=== PATIENT | female | born 1955 | race Caucasian/White ===

== ENCOUNTER 2020-12-29 14:53 | Emergency (ER) | payer MEDICARE ==
[~2020-12-29 14:53] MED LIST: ACTOS45 MG PO; ANORO ELLIPTA1 EACH INH; BACTRIM DS TAB1 EACH PO; BENZONATATE100 MG PO; BROVANA15 MCG/2 M NEB; CELEBREX 200MG200 MG PO; COREG 3.125M3.125 MG PO; COZAAR100 MG PO; DALIRESP500 MCG PO; EFFEXOR XR 3737.5 MG PO; FERROUS SULFAT325 M2 PO; GABAPENTIN300 MG PO; HYDROXYZINE HCL50 MG PO; KEFLEX CAP 500500 MG PO; LAMICTAL100 MG PO; LEVAQUIN500 MG PO; LEVOFLOXACIN500 MG PO; MEDROL4 MG PO; METRONIDAZOLE250 MG PO; MIRALAX17 GM PO; NORCO 5-325 TA1 EACH PO; NORVASC10 MG PO; PRAVACHOL40 MG PO; PREDNISONE20 MG PO; PROTONIX40 MG PO; PYRIDIUM100 MG PO; REQUIP3 MG PO; SINGULAIR10 MG PO; SUBOXONE 8 MG-1 EACH SL; ULTRAM50 MG PO; VALIUM 5 MG TAB5 MG PO; VENTOLIN HFA 66.7 GM INH; VIBRAMYCIN100 MG PO; VRAYLAR PO; ZITHROMAX250 MG PO; ZOFRAN4 MG PO
[2020-12-29 21:48] LABS: HEMOGLOBIN 11.2 gm/dl (12.3-15.3); RED BLOOD COUNT 4.48 M/UL (4.00-5.10); WHITE BLOOD COUNT 8.7 K/UL (4.5-11.0)
[2020-12-29 22:19] LABS: BUN/CREATININE RATIO 30 (0-10)
== END 2020-12-30 01:14 | disposition home or self-care (01) ==
LOC: ER1 14:53
PROVIDERS: Emergency Medicine
DX: R07.9 Chest pain, unspecified (principal); F17.210 Nicotine dependence, cigarettes, uncomplicated; Z88.5 Allergy status to narcotic agent; Z88.8 Allergy status to other drugs, medicaments and biological substances; Z53.20 Procedure and treatment not carried out because of patient's decision for unspecified reasons
CPT/HCPCS: 71046; 80053; 82550; 82553; 84484; 85025; 93005; 99285

== ENCOUNTER 2021-01-08 09:28 | Inpatient (IN) | payer MEDICARE ==
[~2021-01-08] VITALS: Ht 170.2 cm; Wt 54.4 kg
[2021-01-08 11:16] LABS: HEMOGLOBIN 10.1 gm/dl (12.3-15.3); RED BLOOD COUNT 4.11 M/UL (4.00-5.10)
[2021-01-08 11:46] LABS: BUN/CREATININE RATIO 45 (0-10)
[2021-01-08] MEDS ORDERED: ANORO ELLIPTA1 EACH INH (16:13)
[2021-01-08] MEDS ORDERED: ALBUTEROL2.5 MG/3 M INH (16:16)
[2021-01-08] MEDS ORDERED: BYSTOLIC10 MG PO (16:17)
[2021-01-08] MEDS ORDERED: DALIRESP250 MCG PO (16:18)
[2021-01-08] MEDS ORDERED: IBU800 MG PO (16:19)
[2021-01-08] MEDS ORDERED: CONSTULOSE10 GM/15 M PO (16:20)
[2021-01-08] MEDS ORDERED: SINGULAIR10 MG PO (16:22)
[2021-01-08] MEDS ORDERED: TRELEGY ELLIPT1 EACH INH (16:26)
[2021-01-09 04:21] LABS: HEMOGLOBIN 10.2 gm/dl (12.3-15.3); RED BLOOD COUNT 4.09 M/UL (4.00-5.10)
[2021-01-09 04:49] LABS: BUN/CREATININE RATIO 37 (0-10)
[2021-01-10 08:35] LABS: HEMOGLOBIN 10.1 gm/dl (12.3-15.3); RED BLOOD COUNT 4.13 M/UL (4.00-5.10); WHITE BLOOD COUNT 8.6 K/UL (4.5-11.0)
[2021-01-10 09:02] LABS: BUN/CREATININE RATIO 33 (0-10)
--- NOTE | 2021-01-10 17:41 | NUR ---
1735: PATIENT HAS BEEN IN CONSTANT MOTION MOST OF THE DAY AND HAS REQUIRED ATIVAN IV ON TWO OCCASSIONS. PATIENT HAS REQUIRED 1:1 SUPERVISION THIS SHIFT TO PREVENT PERSONAL INJURY. RN SPOKE WITH PATIENTS NEIGHBOR THAT CALLED TO REQUEST THAT THE PATIENT BE MADE AWARE THAT SHE HAS HER HOUSE MURRELL AND HER CAT UNTIL SHE IS DISCHARGED HOME. NEIGHBORS NAME IS PHOEBE HUBER [phone]. RN PLACED A NSG COMMUNICATION FOR STAFF AWARENESS. RN ALSO SPOKE WITH PATIENTS DAUGHTER MINI COTO WHO REQUESTED TO SPEAK WITH CASE MG REGARDING PLACEMENT FOR HER MOTHER AT DISCHARGE. [phone].
[2021-01-11 09:26] LABS: HEMOGLOBIN 10.5 gm/dl (12.3-15.3); RED BLOOD COUNT 4.27 M/UL (4.00-5.10); WHITE BLOOD COUNT 7.8 K/UL (4.5-11.0)
[2021-01-11 09:46] LABS: BUN/CREATININE RATIO 29 (0-10)
[2021-01-13 02:48] LABS: HEMOGLOBIN 11.4 gm/dl (12.3-15.3); RED BLOOD COUNT 4.64 M/UL (4.00-5.10); WHITE BLOOD COUNT 8.5 K/UL (4.5-11.0)
[2021-01-13 03:15] LABS: BUN/CREATININE RATIO 29 (0-10)
--- NOTE | 2021-01-13 11:35 | NUR ---
PATIENT STRAIGHT CATHED PER MD ORDER. 200 ML CLEAR, YELLOW URINE RETURNED TO COLLECTION BAG AFTER BLADDER SCANNER SHOWED 280 ML OF URINARY RETENTION. PATIENT WAS UNABLE TO VOID.
--- NOTE | 2021-01-13 17:35 | NUR ---
PATIENT WITH NO URINE OUTPUT SINCE STRAIGHT CATH THIS AM. NEW ORDER NOTED TO INSERT F/C.
[2021-01-14 08:13] LABS: HEMOGLOBIN 10.8 gm/dl (12.3-15.3); RED BLOOD COUNT 4.38 M/UL (4.00-5.10); WHITE BLOOD COUNT 7.9 K/UL (4.5-11.0)
[2021-01-14 08:21] LABS: BUN/CREATININE RATIO 26 (0-10)
[2021-01-15 06:15] LABS: HEMOGLOBIN 10.4 gm/dl (12.3-15.3); RED BLOOD COUNT 4.3 M/UL (4.00-5.10); WHITE BLOOD COUNT 7.8 K/UL (4.5-11.0)
[2021-01-15 06:56] LABS: BUN/CREATININE RATIO 26 (0-10)
[2021-01-16 06:25] LABS: HEMOGLOBIN 10.6 gm/dl (12.3-15.3); RED BLOOD COUNT 4.33 M/UL (4.00-5.10); WHITE BLOOD COUNT 9.5 K/UL (4.5-11.0)
[2021-01-16 06:46] LABS: BUN/CREATININE RATIO 22 (0-10)
[2021-01-17 08:15] LABS: HEMOGLOBIN 11.8 gm/dl (12.3-15.3); RED BLOOD COUNT 4.76 M/UL (4.00-5.10); WHITE BLOOD COUNT 9.3 K/UL (4.5-11.0)
[2021-01-17 08:46] LABS: BUN/CREATININE RATIO 21 (0-10)
--- NOTE | 2021-01-17 19:25 | NUR ---
INFORMED DR. ENGEL THAT PT PULLED IV OUT THIS MORNING. MD AWARE AND STATED THAT ALL OF HER MEDICATIONS WILL BE CHANGED TO PO AND IM. NO FURTHER IV IS NEEDED.
[2021-01-18 07:51] LABS: HEMOGLOBIN 10.8 gm/dl (12.3-15.3); RED BLOOD COUNT 4.53 M/UL (4.00-5.10); WHITE BLOOD COUNT 9.8 K/UL (4.5-11.0)
[2021-01-19 08:11] LABS: HEMOGLOBIN 11.8 gm/dl (12.3-15.3); RED BLOOD COUNT 4.94 M/UL (4.00-5.10); WHITE BLOOD COUNT 8.7 K/UL (4.5-11.0)
[2021-01-19 08:32] LABS: BUN/CREATININE RATIO 23 (0-10)
[2021-01-20 06:34] LABS: HEMOGLOBIN 12.7 gm/dl (12.3-15.3); RED BLOOD COUNT 5.11 M/UL (4.00-5.10); WHITE BLOOD COUNT 10.4 K/UL (4.5-11.0)
[2021-01-21 08:37] LABS: HEMOGLOBIN 12.1 gm/dl (12.3-15.3); RED BLOOD COUNT 4.93 M/UL (4.00-5.10); WHITE BLOOD COUNT 9.1 K/UL (4.5-11.0)
[2021-01-22 09:37] LABS: HEMOGLOBIN 11.8 gm/dl (12.3-15.3); RED BLOOD COUNT 4.84 M/UL (4.00-5.10)
[2021-01-22 09:38] LABS: WHITE BLOOD COUNT 11.7 K/UL (4.5-11.0)
[2021-01-23 08:08] LABS: HEMOGLOBIN 11.3 gm/dl (12.3-15.3); RED BLOOD COUNT 4.51 M/UL (4.00-5.10)
[2021-01-23 08:15] LABS: WHITE BLOOD COUNT 8.3 K/UL (4.5-11.0)
[2021-01-24 06:42] LABS: BUN/CREATININE RATIO 49 (0-10)
[2021-01-26 07:52] LABS: HEMOGLOBIN 11.3 gm/dl (12.3-15.3); RED BLOOD COUNT 4.76 M/UL (4.00-5.10); WHITE BLOOD COUNT 8.1 K/UL (4.5-11.0)
[2021-01-26 08:13] LABS: BUN/CREATININE RATIO 33 (0-10)
--- NOTE | 2021-01-26 11:47 | NUR ---
01/26/21 1040 WILD CANNOT KEEP IN ROOM REFUSES TO WEAR NON SKID SOCKS, HOUSE NOTIFIED OF NEED FOR SITTER. MARLYN HERE TO SIT WITH HER
--- NOTE | 2021-01-26 11:48 | NUR ---
01/26/21 1145 CONTINUES TO BE WILD STRIKING AT STAFF ATIVAN 2MG IVP GIVEN, NURSE REMAINS AT BEDSIDE. FILM VAULT SUPERVISOR NOTIFIED OF NEED FOR SITTER
--- NOTE | 2021-01-26 12:48 | NUR ---
01/26/21 1245 [facility]AN [facility] PATIENT ON PUREED DIET WITH NECTAR THICK LIQUIDS
--- NOTE | 2021-01-26 14:56 | NUR ---
01/26/21 1430 AMBULATING UNSTEADY IN ROOM AND OCCASSIONALLY GETS OUT OF ROOM, HAD BOWEL MOVEMENT IN HALLWAY. REFUSES TO WEAR SOCKS, CLOTHES AND TO STAY IN ROOM. LUÍS NURSE NUTRITION AIDE AWARE OF NEED FOR SITTER
[2021-01-29 08:10] LABS: HEMOGLOBIN 10.7 gm/dl (12.3-15.3); RED BLOOD COUNT 4.35 M/UL (4.00-5.10); WHITE BLOOD COUNT 7.2 K/UL (4.5-11.0)
[2021-01-29 10:52] LABS: BUN/CREATININE RATIO 35 (0-10)
[2021-01-29] MEDS ORDERED: GLUCOPHAGE 500500 MG PO (19:24)
[2021-01-29] MEDS ORDERED: ROPINIROLE HCL1 MG PO (19:24)
[2021-01-29] MEDS ORDERED: ACETAMINOPHEN325 MG PO (19:24)
[2021-01-29] MEDS ORDERED: QUETIAPINE FUM100 MG PO (19:24)
[2021-01-29] MEDS ORDERED: THERAGRAN M TAB1 EA PO (19:24)
[2021-01-29] MEDS ORDERED: KLONOPIN TAB 00.5 MG PO (19:24)
[2021-01-29] MEDS ORDERED: LOPRESSOR 25 MG25 MG PO (19:25)
--- NOTE | 2021-02-01 00:10 | NUR ---
PATIENT WITH RESTLESS LEG SYNDROME HISTORY. HS REQUIP GIVEN WITHOUT ALLEAVIATING SYMPTOMS, RESULTING IN PATIENT NOT BEING ABLE TO SLEEP AND ANXIOUS ABOUT THE SITUATION. SHE IS ALERT AND ORIENTED AT THIS TIME TO PERSON, PLACE AND TIME AND MOOD IS PLEASANT. ATIVAN ADMISINSTERED AND PATIENT ABLE TO REST AND SLEEP. AROUSABLE TO VERBAL STIMULI. WILL MONITOR.
[2021-02-03 18:33] LABS: BUN/CREATININE RATIO 25 (0-10)
[2021-02-04 05:51] LABS: HEMOGLOBIN 8.8 gm/dl (12.3-15.3); RED BLOOD COUNT 3.52 M/UL (4.00-5.10); WHITE BLOOD COUNT 8.3 K/UL (4.5-11.0)
[2021-02-04 06:02] LABS: BUN/CREATININE RATIO 24 (0-10)
[2021-02-05 02:56] LABS: HEMOGLOBIN 8.6 gm/dl (12.3-15.3); RED BLOOD COUNT 3.47 M/UL (4.00-5.10); WHITE BLOOD COUNT 8.8 K/UL (4.5-11.0)
[2021-02-05 03:27] LABS: BUN/CREATININE RATIO 21 (0-10)
--- NOTE | 2021-02-07 16:19 | NUR ---
REPORT CALLED TO LAMONT SHEFFIELD AT [facility].
== END 2021-02-07 17:40 | DRG 917 ==
LOC: ER1 09:28 → CDU 14:44 → M/S 14:44 → MED SURG 4 01-09 16:49 → M/S 01-11 17:48
PROVIDERS: Emergency Medicine; Family Medicine; Internal Medicine; Internal Medicine Infectious Disease; Physician Assistant; Physician Assistant Medical; ADMIT Internal Medicine
DX: T43.621A Poisoning by amphetamines, accidental (unintentional), initial encounter (principal); G92 Toxic encephalopathy; J18.9 Pneumonia, unspecified organism; N17.9 Acute kidney failure, unspecified; E87.0 Hyperosmolality and hypernatremia; J44.0 Chronic obstructive pulmonary disease with (acute) lower respiratory infection; F15.10 Other stimulant abuse, uncomplicated; E11.65 Type 2 diabetes mellitus with hyperglycemia; F19.10 Other psychoactive substance abuse, uncomplicated; I10 Essential (primary) hypertension; J44.9 Chronic obstructive pulmonary disease, unspecified; R00.0 Tachycardia, unspecified; Z85.118 Personal history of other malignant neoplasm of bronchus and lung; F19.188 Other psychoactive substance abuse with other psychoactive substance-induced disorder; G25.81 Restless legs syndrome; F17.210 Nicotine dependence, cigarettes, uncomplicated; Z96.612 Presence of left artificial shoulder joint; E87.5 Hyperkalemia; F29 Unspecified psychosis not due to a substance or known physiological condition; R13.10 Dysphagia, unspecified; Z90.710 Acquired absence of both cervix and uterus; Z88.5 Allergy status to narcotic agent; Z88.8 Allergy status to other drugs, medicaments and biological substances; Z83.3 Family history of diabetes mellitus; Z80.7 Family history of other malignant neoplasms of lymphoid, hematopoietic and related tissues; Z79.899 Other long term (current) drug therapy
CPT/HCPCS: 36415; 36600; 51701; 71045; 80048; 80053; 80307; 81001; 82140; 82550; 82553; 82803; 82962; 83036; 83540; 83550; 83605; 83735; 83874; 83880; 84100; 84132; 84439; 84443; 84484; 85025; 85027; 85610; 85730; 87040; 90471; 92526; 92610; 94640; 94760; 96365; 96366; 96368; 96372; 96375; 96376; 97110-GP-CQ; 97116-GP-CQ; 97161; 97530-GP-CQ; 99285; G0480; J0360; J0456; J0696; J1650; J2060; J2543; J3411; J3480; J3486; J7030; J7050; J7070; U0002

== ENCOUNTER → 2021-05-07 | Outpatient (CLI) | payer OTHER ==
[~2021-05-07] MED LIST changes: +ACETAMINOPHEN325 MG PO; +ALBUTEROL2.5 MG/3 M INH; +BYSTOLIC10 MG PO; +CONSTULOSE10 GM/15 M PO; +DALIRESP250 MCG PO; +GLUCOPHAGE 500500 MG PO; +IBU800 MG PO; +KLONOPIN TAB 00.5 MG PO; +LOPRESSOR 25 MG25 MG PO; +QUETIAPINE FUM100 MG PO; +ROPINIROLE HCL1 MG PO; +THERAGRAN M TAB1 EA PO; +TRELEGY ELLIPT1 EACH INH
[2021-05-07 11:41] LABS: HEMOGLOBIN 10.5 gm/dl (12.3-15.3); RED BLOOD COUNT 4.15 M/UL (4.00-5.10); WHITE BLOOD COUNT 8.8 K/UL (4.5-11.0)
[2021-05-07 12:16] LABS: BUN/CREATININE RATIO 24 (0-10)
[2021-05-08 07:11] LABS: HEPATITIS B SURF AB QUANT <3.1 mIU/mL (Immunity>9.9)
[2021-05-09 19:09] LABS: HCV LOG10 5.538 (.); HEPATITIS C GENOTYPE 1a (.); HEPATITIS C QUANTITATION 345000 IU/mL (.)
[2021-05-09 22:09] LABS: ALT (SGPT) P5P 63 IU/L (0-40); APOLIPOPROTEIN A-1 167 mg/dL (116-209); BILIRUBIN, TOTAL 0.1 mg/dL (0.0-1.2); FIBROSIS SCORE 0.14 (0.00-0.21); GGT 64 IU/L (0-60); HAPTOGLOBIN 161 mg/dL (37-355); NECROINFLAMMAT ACTIVITY GRADE A1-Minimal activity (.); NECROINFLAMMAT ACTIVITY SCORE 0.32 (0.00-0.17)
== END ==
LOC: LAB 10:22
PROVIDERS: Family Medicine
DX: B19.20 Unspecified viral hepatitis C without hepatic coma (principal); E11.69 Type 2 diabetes mellitus with other specified complication; F31.9 Bipolar disorder, unspecified; G25.81 Restless legs syndrome; I10 Essential (primary) hypertension
CPT/HCPCS: 36415; 80053; 81596; 82172; 82247; 82977; 83010; 83036; 83735; 84439; 84443; 84460; 85027; 86317; 86708; 87522

== ENCOUNTER → 2022-01-24 | Outpatient (CLI) | payer OTHER | LOC: HEART 5 11:39 | DX: R06.02 Shortness of breath (principal) | CPT/HCPCS: 94060; 94729 ==

== ENCOUNTER 2022-03-01 09:47 | Inpatient (IN) | payer OTHER ==
[~2022-03-01] VITALS: Ht 157.5 cm; Wt 82.6 kg
[2022-03-01 10:34] LABS: HEMOGLOBIN 10.1 gm/dl (12.3-15.3); RED BLOOD COUNT 4.19 M/UL (4.00-5.10); WHITE BLOOD COUNT 15.5 K/UL (4.5-11.0)
[2022-03-01 11:09] LABS: BUN/CREATININE RATIO 14 (0-10)
[2022-03-01] MEDS ORDERED: ALBUTEROL2.5 MG/3 M INH (14:28)
[2022-03-01] MEDS ORDERED: NORVASC10 MG PO (14:28)
[2022-03-01] MEDS ORDERED: BREZTRI AEROS10.7 GM INH (14:29)
[2022-03-01] MEDS ORDERED: ZOFRAN 4 MG TAB4 MG PO (14:30)
[2022-03-01] MEDS ORDERED: NEURONTIN600 MG PO (14:32)
[2022-03-01] MEDS ORDERED: VISTARIL25 MG PO (14:32)
[2022-03-01] MEDS ORDERED: VORT10TA PO (14:32)
[2022-03-01] MEDS ORDERED: ZANAFLEX4 MG PO (14:33)
[2022-03-01] MEDS ORDERED: AMBIEN5 MG PO (14:33)
[2022-03-01] MEDS ORDERED: SOFOSBUVIR-VEL1 EACH PO (14:35)
[2022-03-01] MEDS ORDERED: CELEBREX200 MG PO (14:36)
[2022-03-01] MEDS ORDERED: CARBIDOPA-LEVO1 EA14 PO (14:36)
[2022-03-01] MEDS ORDERED: SINGULAIR10 MG PO (14:36)
[2022-03-01] MEDS ORDERED: DALIRESP500 MCG PO (14:37)
[2022-03-01] MEDS ORDERED: LOPRESSOR 25 MG25 MG PO (14:38)
[2022-03-01] MEDS ORDERED: LANTUS SOL100 UNIT/1 SC (14:39)
[2022-03-01] MEDS ORDERED: HUMALOG100 UNIT/3 SC (14:40)
[2022-03-01] MEDS ORDERED: [UNRECOGNIZED DRUG - REMARK] PO (19:12)
--- NOTE | 2022-03-02 06:21 | NUR ---
LAB CALLED CANNOT PERFORM C-DIFF TESTING ON FORMED STOOLS, PATIENT STOOLS ARE FORMED AND SOFT, NOT WATERY
[2022-03-02 07:30] LABS: HEMOGLOBIN 9.5 gm/dl (12.3-15.3)
[2022-03-02 07:51] LABS: BUN/CREATININE RATIO 11 (0-10)
--- NOTE | 2022-03-03 02:24 | NUR ---
PATIENT WAS GIVRN TYLENOL FOR TEMP OF 102, BLANKETS REMOVED ROOM TEMP TURNED DOWN, WILL CONTINUE TO MONITOR
[2022-03-03 04:40] LABS: RED BLOOD COUNT 3.74 M/UL (4.00-5.10); WHITE BLOOD COUNT 16.5 K/UL (4.5-11.0)
--- NOTE | 2022-03-03 04:59 | NUR ---
CONTACTED PROVIDER REGARDING PATIENT POTASSIUM. ORDERS ADDED FOR REPLACEMENT PROTOCOL, PHARMACY TO ADD ORDERS.
[2022-03-03 05:09] LABS: BUN/CREATININE RATIO 13 (0-10)
[2022-03-04 05:12] LABS: HEMOGLOBIN 8.9 gm/dl (12.3-15.3); RED BLOOD COUNT 3.61 M/UL (4.00-5.10); WHITE BLOOD COUNT 12.5 K/UL (4.5-11.0)
[2022-03-04 05:37] LABS: BUN/CREATININE RATIO 12 (0-10)
--- NOTE | 2022-03-04 15:05 | NUR ---
PATIENT REQUESTED TO PUT CLOTHES ON AND GO DOWNSTAIRS TO WALK AROUND. RN REMINDED PATIENT THAT SHE IS A FALL RISK BECAUSE OF HER UNSTEADY GAIT. PATIENT BECAME SEVERELY AGITATED AND BEGAN YELLING AT RN. RN ATTEMPTED TO EDUCATE PATIENT THAT THIS WAS ONLY FOR HER SAFETY AND OFFERED TO ASSIST HER TO COUCH BY THE WINDOW IN HER ROOM. PATIENT REFUSED. RN INSTRUCTED PATIENT TO RING HER CALL LIGHT IF SHE NEEDED ANYTHING ELSE. PATIENT STATED SHE DIDN'T NEED ANYTHING FROM RN. RN EXITED. BED LOCKED AND LOW. CALL LIGHT WITHIN REACH.
--- NOTE | 2022-03-04 15:44 | NUR ---
PATIENT RIGHT AC IV NOTED TO BE LEAKING AND LEFT AC IV NOT WORKING PROPERLY AND UNABLE TO FLUSH. RN ASKED CARLOS TO PUT AND IV IN PATIENT AND SHE STATED SHE WOULD BUT PATIENT REFUSED. RN ATTEMPTED TO EDUCATE PATIENT THAT ANTIBIOTICS COULDN'T BE RAN THROUGH AN IV LINE THAT WAS LEAKING BECAUSE THIS COULD LEAD TO INFILLTRATION AND OTHER COMPLICATIONS. PATIENT BECAME SEVERELY AGITATED AND REFUSED TO LET RN AND STAFF PLACE AN IV AT THIS TIME. DONOR RELATIONS COORDINATOR MADE AWARE. PATIENT NOTED TO BE RESTING IN BED AT PRESENT. LEFT ALONE TO SELF SOOTHE. BED LOCKED AND LOW. CALL LIGHT WITHIN REACH.
--- NOTE | 2022-03-04 22:08 | NUR ---
PATIENT DAUGHTER WAS AT BEDSIDE FOR CHANGE OF SHIFT REPORT. SHE STATED "MOM WAS OUT OF HER VAPE, SHE HAS IT NOW AND SHOULD BE BETTER". PATIENT IS NOT AGITATED LAST EVENING BUT DID MAKE AN INAPPROPRIATE COMMENT TO RT WHILE I WAS REMOVING HER OLD IV. PATIENT STATED TO RT "DO YOU WANT TO SEE MY BOOB?" RT STATED "NO" AND TURNED AND LEFT THE ROOM UNTIL WE FINISHED REMOVING THE IV FROM PATIENTS AC. PATIENT IS IN BED, BED IS IN LOWEST POSITION, ALARM ON AND CALL [place] WITH IN REACH. PATIENT WAS INSTRUCTED TO CALL FOR ASSISTANCE.
--- NOTE | 2022-03-05 01:16 | NUR ---
patients iv pumping was beeping, I went in to fix it. patient was agitated and stated "its too late for this shit let me get some damn sleep". She started puffing on her vape. I then educated patient on vaping. will continue to monitor patient.
--- NOTE | 2022-03-06 01:23 | NUR ---
DURING BEDSIDE REPORT AT CHANGE OF SHIFT PATIENT STATED "IM STARVING AND NOT ABLE TO CHEW MY FOOD BECAUSE THE MEAT IS NOT GROUND UP". PATIENT HAS NO TEETH AND DOEN'T WEAR DENTURES. DRUING EVENING MED PASS PATIENT STATED THAT SHE DOES NOT WANT TO BE BOTHERED ALL NIGHT TO LET HER SLEEP SHE SAT ON THE SIDE OF THE BED PUFFING ON HER VAPE. 0116 PATIENT YELLED OUT "GET ME A SNACK IM STARVING AND I DONT WANT ANY DAMN CRACKERS". I GAVE THE PATIENT A TURKEY SANDWICH SHE STATED" THAT IS COLD GO HEAT IT UP AND BRING ME SOME CHIPS". I TOLD THE PATIENT THAT WE DONT HAVE ANY CHIPS. WHEN I GAVE HER THE HEATED SANDWICH SHE PULLED A POCKET KNIEF OUT OF HER PURSE AND BEAGN TO CUT THE SANDWICH INTO A BUNCH OF TINY PIECE. PATIENT ATE THE SANDWICH AND I HELPED HER GET COMFORTABLE IN BED.
[2022-03-06 02:55] LABS: HEMOGLOBIN 8.3 gm/dl (12.3-15.3); RED BLOOD COUNT 3.41 M/UL (4.00-5.10)
[2022-03-06 03:20] LABS: BUN/CREATININE RATIO 12 (0-10)
[2022-03-07 03:17] LABS: HEMOGLOBIN 8.3 gm/dl (12.3-15.3); RED BLOOD COUNT 3.45 M/UL (4.00-5.10); WHITE BLOOD COUNT 8.7 K/UL (4.5-11.0)
--- NOTE | 2022-03-07 18:04 | NUR ---
PT INSISTING FOR THE SECOND TIME TODAY THAT SHE WAS GOING OUTSIDE. FIRST TIME PT INSISTED AND BECOME VERY ANGRY BUT WAS ABLE TO TALK PT. INTO STAYING IN ROOM. SECOND TIME PT. WAS UNABLE TO CONVINCE PT. TO STAY IN ROOM. PT STATES UNHOOK IRON INFUSION NOW IN A LOUD ANGRY VOICE AND STATES SHES LEAVING NO MATTER WHAT I SAY. POWERHOUSE MECHANIC HELPER CALLED TO MAKE AWARE OF SITUATION. ALSO TRIED TO CALL FAMILY MEMBER BUT NO ANSWER. PT. INSTRUCTED THAT FOR HER SAFETY SHE SHOULD STAY IN HER ROOM BECAUSE SHE MAY FALL OR NOT HAVE ENOUGH BREATH TO MAKE IT BACK TO HER ROOM. SECURITY NOTIFIED AFTER PT. LEFT TO KEEP EYE OUT FOR PT. ALSO IN CASE THEY SEE HER DOWNSTAIRS.
--- NOTE | 2022-03-07 18:18 | NUR ---
PT RETURNED TO FLOOR PER NURSING STAFF IN WHEELCHAIR. PT STABLE AT THIS TIME
--- NOTE | 2022-03-07 19:20 | NUR ---
PATIENT REFUSES BED ALARM EDUCATED ON FALL RISK IN FRONT OF NURSES STATION WILL KEEP DOOR OPEN WCTM
[2022-03-08] MEDS ORDERED: AMOX TR-K CLV1 EAC4 PO (11:20)
[2022-03-08] MEDS ORDERED: FIORINAL CAPSULE1 EA PO ×2 (11:20→11:47)
[2022-03-08] MEDS ORDERED: MUCINEX600 MG PO (11:24)
[2022-03-08] MEDS ORDERED: FERROUS GLUCON324 M1 PO (11:24)
[2022-03-08] MEDS ORDERED: STIMULANT LAXA1 EACH PO (11:28)
--- NOTE | 2022-03-08 14:18 | NUR ---
PT HAS NO IV IN PLACE
== END 2022-03-08 14:18 | disposition home or self-care (01) | DRG 871 ==
LOC: ER1 09:47 → M/S 13:12 → CDU 13:12 → M/S 15:30
PROVIDERS: Family Medicine; Internal Medicine Infectious Disease; Physician Assistant; ADMIT Internal Medicine
DX: A41.9 Sepsis, unspecified organism (principal); J18.9 Pneumonia, unspecified organism; Z20.822 Contact with and (suspected) exposure to COVID-19; J69.0 Pneumonitis due to inhalation of food and vomit; F11.20 Opioid dependence, uncomplicated; F15.20 Other stimulant dependence, uncomplicated; J44.0 Chronic obstructive pulmonary disease with (acute) lower respiratory infection; J44.1 Chronic obstructive pulmonary disease with (acute) exacerbation; J96.11 Chronic respiratory failure with hypoxia; J96.12 Chronic respiratory failure with hypercapnia; E11.9 Type 2 diabetes mellitus without complications; I10 Essential (primary) hypertension; D64.9 Anemia, unspecified; Z96.612 Presence of left artificial shoulder joint; K62.9 Disease of anus and rectum, unspecified; R65.20 Severe sepsis without septic shock; E66.01 Morbid (severe) obesity due to excess calories; F41.9 Anxiety disorder, unspecified; G89.29 Other chronic pain; K59.00 Constipation, unspecified; D50.9 Iron deficiency anemia, unspecified; M79.606 Pain in leg, unspecified; R51.9 Headache, unspecified; Y95 Nosocomial condition; G25.81 Restless legs syndrome; B18.2 Chronic viral hepatitis C; Z85.118 Personal history of other malignant neoplasm of bronchus and lung; Z90.2 Acquired absence of lung [part of]; Z88.8 Allergy status to other drugs, medicaments and biological substances; Z88.6 Allergy status to analgesic agent; Z83.3 Family history of diabetes mellitus; Z79.899 Other long term (current) drug therapy; Z90.89 Acquired absence of other organs; Z79.4 Long term (current) use of insulin; Z68.33 Body mass index [BMI] 33.0-33.9, adult; Z99.81 Dependence on supplemental oxygen
CPT/HCPCS: 0240U; 36415; 71045; 71250; 74022; 80048; 80053; 80202; 80307; 81001; 82607; 82728; 82746; 83540; 83550; 83605; 83735; 84100; 84132; 85025; 85610; 86140; 87040; 87086; 92526; 92610; 93005; 94640; 94664; 94760; 96374; 96375; 96376; 97110-GP-CQ; 97116-GP-CQ; 97161; 99285; C1751; J0456; J0692; J0696; J1335; J1650; J1756; J1885; J2405; J2543; J3370; J3475; J7030; J7070; Q0177; Q9967

== ENCOUNTER 2022-03-09 18:57 | Observation (INO) | payer OTHER ==
[~2022-03-09] VITALS: Ht 157.5 cm; Wt 81.6 kg
[~2022-03-09 18:57] MED LIST changes: +AMBIEN5 MG PO; +AMOX TR-K CLV1 EAC4 PO; +BREZTRI AEROS10.7 GM INH; +CARBIDOPA-LEVO1 EA14 PO; +CELEBREX200 MG PO; +FERROUS GLUCON324 M1 PO; +FIORINAL CAPSULE1 EA PO; +HUMALOG100 UNIT/3 SC; +LANTUS SOL100 UNIT/1 SC; +MUCINEX600 MG PO; +NEURONTIN600 MG PO; +SOFOSBUVIR-VEL1 EACH PO; +STIMULANT LAXA1 EACH PO; +VISTARIL25 MG PO; +VORT10TA PO; +ZANAFLEX4 MG PO; +ZOFRAN 4 MG TAB4 MG PO; +[UNRECOGNIZED DRUG - REMARK] PO
[2022-03-09 20:23] LABS: RED BLOOD COUNT 4.19 M/UL (4.00-5.10); WHITE BLOOD COUNT 11.6 K/UL (4.5-11.0)
[2022-03-09 20:42] LABS: BUN/CREATININE RATIO 7 (0-10)
[2022-03-10] MEDS ORDERED: OZEMPIC0.25 MG/0. SQ (14:31)
[2022-03-11 04:11] LABS: HEMOGLOBIN 9.2 gm/dl (12.3-15.3); RED BLOOD COUNT 3.89 M/UL (4.00-5.10); WHITE BLOOD COUNT 10.6 K/UL (4.5-11.0)
[2022-03-11 04:29] LABS: BUN/CREATININE RATIO 14 (0-10)
== END 2022-03-11 14:17 | disposition home health service (06) ==
LOC: ER1 18:57 → M/S 03-10 01:00 → CDU 03-10 01:00 → M/S 03-10 04:03
PROVIDERS: Emergency Medicine; Internal Medicine; ADMIT Internal Medicine
DX: R11.2 Nausea with vomiting, unspecified (principal); R19.7 Diarrhea, unspecified; E86.0 Dehydration; J96.11 Chronic respiratory failure with hypoxia; J96.12 Chronic respiratory failure with hypercapnia; J44.9 Chronic obstructive pulmonary disease, unspecified; E11.9 Type 2 diabetes mellitus without complications; D50.9 Iron deficiency anemia, unspecified; G89.29 Other chronic pain; R51.9 Headache, unspecified; B19.20 Unspecified viral hepatitis C without hepatic coma; G25.81 Restless legs syndrome; I10 Essential (primary) hypertension; Z20.822 Contact with and (suspected) exposure to COVID-19; Z88.5 Allergy status to narcotic agent; Z88.8 Allergy status to other drugs, medicaments and biological substances; Z87.891 Personal history of nicotine dependence; Z87.01 Personal history of pneumonia (recurrent); Z86.19 Personal history of other infectious and parasitic diseases; Z79.4 Long term (current) use of insulin; Z79.1 Long term (current) use of non-steroidal anti-inflammatories (NSAID); Z79.899 Other long term (current) drug therapy
CPT/HCPCS: 36415; 71045; 80053; 81001; 82962; 83605; 83735; 84100; 85025; 87040; 87086; 94760; 96365; 96367; 96372; 96375; 96376; 99285; C9113; G0378; J0696; J0780; J1335; J1650; J2405; J2550; J7030; Q0177; U0002

== ENCOUNTER → 2022-04-16 | Outpatient (CLI) | payer OTHER ==
[~2022-04-16] MED LIST changes: +OZEMPIC0.25 MG/0. SQ
== END ==
LOC: EMI 09:16
DX: M75.121 Complete rotator cuff tear or rupture of right shoulder, not specified as traumatic (principal)
CPT/HCPCS: 73221

== ENCOUNTER → 2022-05-13 | Outpatient (CLI) | payer OTHER | LOC: KOH-I 10:30 | DX: Z87.891 Personal history of nicotine dependence (principal); R91.8 Other nonspecific abnormal finding of lung field | CPT/HCPCS: 71250 ==

== ENCOUNTER → 2022-06-06 | Outpatient (CLI) | payer MEDICARE, OTHER ==
[~2022-06-06] MED LIST changes: +CYCLOBENZAPRINE10 MG PO; +DALIRESP 500500 MCG PO; +HYDROCODONE-AC1 EACH PO; -LAMICTAL100 MG PO; +LAMICTAL25 MG PO; +LINZESS145 MCG PO; +MYSOLINE50 MG PO; -NEURONTIN600 MG PO; +NEURONTIN800 MG PO; +PEPCID20 MG PO; +QUVIVIQ25 MG PO; +SINEQUAN CAP 1010 MG PO
[2022-06-06 11:18] LABS: HEMOGLOBIN 12.3 gm/dl (12.3-15.3); RED BLOOD COUNT 4.8 M/UL (4.00-5.10); WHITE BLOOD COUNT 10.5 K/UL (4.5-11.0)
[2022-06-06 11:37] LABS: BUN/CREATININE RATIO 18 (0-10)
== END ==
LOC: OPSV2 10:00
PROVIDERS: Nurse Practitioner Primary Care
DX: Z01.812 Encounter for preprocedural laboratory examination (principal); M75.101 Unspecified rotator cuff tear or rupture of right shoulder, not specified as traumatic
CPT/HCPCS: 36415; 80048; 85027

== ENCOUNTER → 2022-06-13 | Day surgery (SDC) | payer MEDICARE, OTHER ==
[~2022-06-13] MED LIST changes: +ENDOCET 7.5-321 EACH PO
== END | disposition home or self-care (01) ==
LOC: OR 07:01
PROVIDERS: Orthopaedic Surgery
PROC: 3E0T3BZ Introduction of Anesthetic Agent into Peripheral Nerves and Plexi, Percutaneous Approach (ICD-10-PCS; 2022-06-13)
PROC: 0MN10ZZ Release Right Shoulder Bursa and Ligament, Open Approach (ICD-10-PCS; principal; 2022-06-13 10:45)
DX: M75.121 Complete rotator cuff tear or rupture of right shoulder, not specified as traumatic (principal); I10 Essential (primary) hypertension; E78.5 Hyperlipidemia, unspecified; J44.9 Chronic obstructive pulmonary disease, unspecified; K21.9 Gastro-esophageal reflux disease without esophagitis; K44.9 Diaphragmatic hernia without obstruction or gangrene; G25.81 Restless legs syndrome; E11.40 Type 2 diabetes mellitus with diabetic neuropathy, unspecified; Z86.16 Personal history of COVID-19; Z79.4 Long term (current) use of insulin; Z79.899 Other long term (current) drug therapy; Z88.5 Allergy status to narcotic agent; Z88.8 Allergy status to other drugs, medicaments and biological substances; Z87.891 Personal history of nicotine dependence; Z96.612 Presence of left artificial shoulder joint
CPT/HCPCS: 71045; 81001; 82962; C1713; J0690; J1100; J1885; J2250; J2405; J2704; J2710; J2795; J3010; J3370

== ENCOUNTER 2022-07-03 13:13 | Emergency (ER) | payer MEDICARE, OTHER ==
[2022-07-03 14:42] LABS: HEMOGLOBIN 11.3 gm/dl (12.3-15.3); RED BLOOD COUNT 4.31 M/UL (4.00-5.10); WHITE BLOOD COUNT 10.1 K/UL (4.5-11.0)
[2022-07-03 14:59] LABS: BUN/CREATININE RATIO 22 (0-10)
[2022-07-03] MEDS ORDERED: BENZONATATE100 MG PO (17:34)
[2022-07-03] MEDS ORDERED: CEPHALEXIN500 M1 PO (17:34)
== END 2022-07-03 17:39 | disposition home or self-care (01) ==
LOC: ER1 13:13
PROVIDERS: Physician Assistant
DX: J44.1 Chronic obstructive pulmonary disease with (acute) exacerbation (principal); N39.0 Urinary tract infection, site not specified; E11.9 Type 2 diabetes mellitus without complications; Z87.891 Personal history of nicotine dependence; Z79.4 Long term (current) use of insulin; Z20.822 Contact with and (suspected) exposure to COVID-19
CPT/HCPCS: 0240U; 36600; 71045; 71275; 80053; 81001; 82550; 82553; 82803; 83605; 83880; 84484; 85025; 85379; 99285; Q9967

== ENCOUNTER 2022-08-01 15:39 | Emergency (ER) | payer MEDICARE, OTHER ==
[~2022-08-01 15:39] MED LIST changes: +CEPHALEXIN500 M1 PO
[2022-08-01 18:16] LABS: HEMOGLOBIN 11.8 gm/dl (12.3-15.3); RED BLOOD COUNT 4.53 M/UL (4.00-5.10)
[2022-08-01 18:40] LABS: BUN/CREATININE RATIO 20 (0-10)
[2022-08-01] MEDS ORDERED: ZOFRAN ODT 4 MG4 MG PO (22:32)
[2022-08-02] MEDS ORDERED: K-TAB ER20 MEQ PO (17:16)
== END 2022-08-01 22:34 | disposition home or self-care (01) ==
LOC: ER1 15:39
DX: R11.2 Nausea with vomiting, unspecified (principal); E11.9 Type 2 diabetes mellitus without complications; J44.9 Chronic obstructive pulmonary disease, unspecified; Z88.8 Allergy status to other drugs, medicaments and biological substances
CPT/HCPCS: 71045; 80053; 81001; 82550; 82553; 82962; 83690; 83880; 84484; 85025; 93005; 96374; 99284; J2405; Q9967

== ENCOUNTER 2022-08-02 12:38 | Emergency (ER) | payer MEDICARE, OTHER ==
[~2022-08-02 12:38] MED LIST changes: +ZOFRAN ODT 4 MG4 MG PO
[2022-08-02 13:40] LABS: HEMOGLOBIN 12.7 gm/dl (12.3-15.3); RED BLOOD COUNT 4.85 M/UL (4.00-5.10); WHITE BLOOD COUNT 9.9 K/UL (4.5-11.0)
[2022-08-02 14:06] LABS: BUN/CREATININE RATIO 13 (0-10)
[2022-08-02] MEDS ORDERED: K-TAB ER20 MEQ PO (17:16)
== END 2022-08-02 17:30 | disposition home or self-care (01) ==
LOC: ER1 12:38
PROVIDERS: Physician Assistant
DX: E87.6 Hypokalemia (principal); E11.65 Type 2 diabetes mellitus with hyperglycemia; I10 Essential (primary) hypertension; J44.9 Chronic obstructive pulmonary disease, unspecified; Z88.5 Allergy status to narcotic agent; Z88.8 Allergy status to other drugs, medicaments and biological substances
CPT/HCPCS: 80053; 81001; 82550; 82553; 83690; 84484; 85025; 93005; 96374; 96375; 96376; 99283; J1885; J2405